=== PATIENT | male | born 1975 | race Caucasian/White ===

== ENCOUNTER 2016-09-10 11:57 | Emergency (ER) ==
--- NOTE | 2016-09-10 12:18 | PROVIDER DOCUMENTATION ---
HPI-General Adult <Flores Boyd - Last Filed: 09/10/16 12:18> - General Source: patient - History of Present Illness -Gen Adult Nature of Presenting Problems: 41 yo male presents to ER via EMS with c/o anxiety due to leaving him recently. 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 Location of Pain/Injury: reports: none Pain Radiation: reports: no radiation Quality of Pain: reports: none Severity: reports: moderate Onset/Duration: reports: just prior to arrival Timing: reports: still present Context/Activities at Onset: reports: recent emotional stress (d/t leaving him recently) Modifying Factors: improves with: nothing Associated Symptoms: reports: anxiety Similar Symptoms Previously?: Yes Recently seen or treated by another doctor?: No <[email or web address]. - Last Filed: 09/10/16 17:18> - General Chief Complaint: Anxiety Stated Complaint: PANIC ATTACK Time Seen by Provider: 09/10/16 13:00 Allergies/Adverse Reactions: Patient Allergies Allergy/AdvReac Type Severity Reaction Status Date / Time No Known Allergies Allergy Verified 09/10/16 12:11 Home Medications: Home Medication List Medication Instructions Recorded Confirmed Last Taken Type Clonazepam [Klonopin] 1 mg PO BID PRN PRN #14 tablet 09/10/16 Unknown Rx Review of Systems - Adult - REVIEW OF SYSTEMS - ADULT Constitutional: reports: no symptoms reported Eyes: reports: no symptoms reported Ears, Nose, Mouth & Throat: reports: no symptoms reported Cardiovascular: reports: see HPI, other (chest pressure) Respiratory: reports: no symptoms reported Gastrointestinal: reports: no symptoms reported Genitourinary: reports: no symptoms reported Musculoskeletal: reports: no symptoms reported Integumentary: reports: no symptoms reported Neurological: reports: no symptoms reported Psychiatric: reports: see HPI, anxiety Endocrine: reports: no symptoms reported Hematologic/Lymphatic: reports: no symptoms reported Allergic/Immunologic: reports: no symptoms reported All Other Systems: Reviewed and Negative <VickieSeptember. - Last Filed: 09/10/16 17:18> Past History - Adult - PAST MEDICAL HISTORY-ADULT Review of Records: reports: Old Records Reviewed, Nursing Assessment Review, Medications Reviewed, Social history reviewed & non-contributory. Major Childhood Illnesses: reports: denies history Cardiovascular: reports: denies history Respiratory: reports: denies history Gastrointestinal: reports: denies history Obstetrical/Gynecological: reports: denies history Genitourinary: reports: denies history Musculoskeletal: reports: denies history Neurological: reports: denies history Endocrine/Immune: reports: denies history Other Conditions: reports: denies history - IMMUNIZATION STATUS Childhood Immunizations: See Nurse Assessment Flu Vaccine: See Nurse Assessment - FAMILY HISTORY Family History: reviewed, not pertinent - SOCIAL HISTORY Smoking: denies, non-smoker Substance Use: marijuana Alcohol Use Frequency: every day Number of drinks per typical drinking period:: 3-4 drinks (beer) Living Situation: alone <Johnston. - Last Filed: 09/10/16 17:18> Physical Exam-General - PHYSICAL EXAM-ADULT Initial Vital Signs Reviewed: Yes - CONSTITUTIONAL General Appearance: alert, anxious - EYES Eyes: PERRL/EOMI, pink conjunctivae - HEAD, EARS, NOSE, MOUTH & THROAT HENMT: normocephalic/atraumatic - RESPIRATORY Respiratory: lungs clear, normal breath sounds, no respiratory distress - CARDIOVASCULAR Cardiovascular: normal peripheral pulses, regular rate, rhythm - MUSCULOSKELETAL Extremity: normal gait - SKIN Integumentary: normal color, normal turgor, warm/dry - NEUROLOGIC Neurologic: grossly normal - PSYCHIATRIC Psych/Mental Status: normal thought content, normal thought process, oriented x 3, anxious, tearful <Johnston. - Last Filed: 09/10/16 17:18> Progress - EKG 1 Time of EKG reading by physician:: 12:10 EKG Read and Signed by:: Sergio Glass EKG Interpretation (*Must complete 3 of following elements*): Normal Rate: 98 Rhythm: normal sinus rhythm [place]: normal QRS: normal NC Interval: normal ST Wave: normal <Flores Boyd - Last Filed: 09/10/16 12:18> - PLAN OF CARE/RESULTS Progress/Plan/Lab Results: 1410-Discussed patient case with Dr. Glass; ok to give klonopin 1mg BID prn anxiety. 1430-Discussed results/dx/tx/need to establish a primary care provider; patient verbalized understanding. Laboratory Tests 09/10/16 09/10/16 09/10/16 12:40 12:40 12:40 WBC 6.84 RBC 4.90 Hgb 15.7 Hct 45.6 MCV 93.1 MCH 32.0 H MCHC 34.4 RDW Std Deviation 12.3 Plt Count 272 MPV 9.5 Immature Gran % (Auto) 0.4 Neut % (Auto) 67.5 Lymph % (Auto) 23.7 Union % (Auto) 7.6 Eos % (Auto) 0.4 Baso % (Auto) 0.4 Immature Gran # (Auto) 0.03 Neut # (Auto) 4.61 Lymph # (Auto) 1.62 Union # (Auto) 0.52 Eos # (Auto) 0.03 Baso # (Auto) 0.03 Sodium 137 Potassium 4.2 Chloride 99 Carbon Dioxide 25 Anion Gap 14 BUN 9 Creatinine 0.8 Estimated GFR/1.73 m2 > 60 BUN/Creatinine Ratio 11 Glucose 110 H Calculated Osmolality 273 Calcium 9.8 Total Bilirubin 0.50 AST 39 H ALT 53 H Alkaline Phosphatase 44 Creatine Kinase Creatine Kinase Index CK-MB (CK-2) Troponin T < 0.010 Total Protein 7.9 Albumin 5.0 Globulin 3.0 Albumin/Globulin Ratio 2.0 09/10/16 12:40 WBC RBC Hgb Hct MCV MCH MCHC RDW Std Deviation Plt Count MPV Immature Gran % (Auto) Neut % (Auto) Lymph % (Auto) Union % (Auto) Eos % (Auto) Baso % (Auto) Immature Gran # (Auto) Neut # (Auto) Lymph # (Auto) Union # (Auto) Eos # (Auto) Baso # (Auto) Sodium Potassium Chloride Carbon Dioxide Anion Gap BUN Creatinine Estimated GFR/1.73 m2 BUN/Creatinine Ratio Glucose Calculated Osmolality Calcium Total Bilirubin AST ALT Alkaline Phosphatase Creatine Kinase 595 H Creatine Kinase Index 0.6 CK-MB (CK-2) 3.82 Troponin T Total Protein Albumin Globulin Albumin/Globulin Ratio Orders Category Date Time Status CHEST-2 VIEWS [RAD] Stat Exams 09/10/16 12:16 Draft CBC WITH DIFF [HEME] Stat Lab 09/10/16 12:40 Completed CK PROFILE [SP CHEM] Stat Lab 09/10/16 12:40 Completed COMPREHENSIVE METABOLIC PANEL [CHEM] Stat Lab 09/10/16 12:40 Completed TROPONIN T Stat Lab 09/10/16 12:40 Completed Lorazepam [Ativan] Med 03/18/17 13:29 Discontinued 1 mg PO NOW ONE EKG [EKG] Stat Ther 09/10/16 12:16 Draft Vital Signs - 24 hr 09/10/16 09/10/16 12:07 14:53 Temperature 97.9 F Pulse Rate 96 H 78 Respiratory 18 20 Rate Blood Pressure 186/92 155/99 O2 Sat by Pulse 100 99 Oximetry - REASSESSMENT Reassessment #1 Time Reassessed: 14:34 (anxiety improved) Status: improving - XRAY 1 XRAY Study: Chest Impression: Normal (no acute chest pathology) XRAY Interpretation: Interpreted by Dr. Vanegas <VickieSeptember. - Last Filed: 09/10/16 17:18> Departure <Flores Boyd - Last Filed: 09/10/16 12:18> - Departure Time of Disposition Order: 14:41 Certified Medical Emergency: Emergent <VickieSeptember. - Last Filed: 09/10/16 17:18> - Departure DIAGNOSIS: Anxiety, Stress Disposition: HOME 01 Condition: Fair Additional Instructions: Establish a primary care doctor. Take medications as prescribed. ED Follow Up Instructions: You have been treated by a care provider in the Emergency Department. These instructions are being provided to you so you can have an understanding of how to care for yourself upon discharge. Upon discharge from the Emergency Department, you are responsible for making arrangements for follow-up care by a physician of your choice. Take all prescribed medications as directed. Return to the Emergency Department immediately for any new or worsening symptoms. You may call the Physician Referral phone number at [phone] to obtain a list of Physicians who are taking new patients. Prescriptions: Clonazepam [Klonopin] 1 mg PO BID PRN PRN #14 tablet PRN Reason: Anxiety Referrals: Zenon Muller MD [STAFF PHYSICIAN] - Forms: Return to School/Parent Work Instructions: Clonazepam tablets, Stress and Stress Management Attestation - Scribe Verification/Attestation Scribe:: Flores Boyd Scribe documention review:: This chart was documented by a scribe and accurately reflects the service the provider performed and the decisions made by the provider. <Flores Boyd - Last Filed: 09/10/16 12:18> - Physician/ OJ Attestation Patient care was provided by Advanced Practice Provider:: Yes Advanced Practice Provider:: Bernice Johnston Advanced Practice Provider documentation review:: The Mid-level provider documentation, treatment plan and medical decision making was reviewed by the physician who agrees with all treatment and medical decision making by the MLP. <Bernice Johnston - Last Filed: 09/10/16 17:18> Physician Attestation - Physician Attestation I, the provider, attest to the following statement:: Bernice Johnston Physician documentation Attestation:: This documentation recorded by the scribe accurately reflects the service I personally performed and the decisions made by me. <Bernice Johnston - Last Filed: 09/10/16 17:18>
[2016-09-10 12:46] LABS: MANUAL DIFF NEEDED? NO
[2016-09-10 12:47] LABS: BASO% 0.4 % (0.0-0.8); EOS# 0.03 X1000 (0.0-0.7); EOS% 0.4 % (0.0-10.0); HEMATOCRIT 45.6 % (42.0-52.0); HEMOGLOBIN 15.7 g/dL (14.0-18.0); IMM GRAN# 0.03 X1000 (0.0-0.04); IMM GRAN% 0.4 % (0.0-0.5); LYMPH# 1.62 X1000 (1.2-3.4); LYMPH% 23.7 % (20.5-51.1); MCHC 34.4 g/dL (33-37); MCV 93.1 FL (81-99); MONO# 0.52 X1000 (0.11-0.59); MONO% 7.6 % (1.7-9.3); MPV 9.5 FL (7.4-10.4); NEUT% 67.5 % (42.2-75.2); PLT 272 X1000 (130-400)
--- NOTE | 2016-09-10 13:00 | Diag Imaging Result Document ---
PROCEDURE NAME: CHEST-2 VIEWS - 09/10/2016 PA AND LATERAL RADIOGRAPH OF THE CHEST: COMPARISON: None available. FINDINGS: The lungs are grossly clear. There is no discrete pleural fluid collection or evidence of pneumothorax. The cardiomediastinal silhouette and upper airway are grossly unremarkable. IMPRESSION: No evidence of acute chest pathology.
--- NOTE | 2016-09-10 13:02 | EKG Report ---
Test Performed on : 09/10/2016 12:10:06 PM Test Reason : ANXIETY Blood Pressure : / mmHG Vent. Rate : 098 BPM Atrial Rate : 098 BPM P-R Int : 152 ms QRS Dur : 092 ms QT Int : 348 ms P-R-T Axes : 048 063 027 degrees QTc Int : 444 ms Normal sinus rhythm. Normal ECG No previous ECGs available Unconfirmed Result
[2016-09-10 13:17] LABS: AGAP 14; ALKALINE PHOSPHATASE 44 U/L (32-122); BUN 9 mg/dL (8-22); CALCIUM 9.8 mg/dL (8.8-10.2); CHLORIDE 99 mmol/L (98-107); COSMO 273; GOT 39 U/L (10-34); GPT 53 U/L (10-44); POTASSIUM 4.2 mmol/L (3.5-5.1); SODIUM 137 mmol/L (136-145); TCO2 25 mmol/L (25-35); TOTAL PROTEIN 7.9 g/dL (6.3-8.3)
[2016-09-10] MEDS ORDERED: ATIVAN PO ONE (13:29)
[2016-09-10 14:02] LABS: CK INDEX 0.6 (0.0-2.5); CK-MB 3.82 ng/mL (0.0-5.0)
[2016-09-10 14:54] VITALS: BP 155/99
== END 2016-09-10 14:54 | disposition home or self-care (01) ==
LOC: P.ED 11:57
DX: F41.9 Anxiety disorder, unspecified (principal); F43.9 Reaction to severe stress, unspecified; R07.89 Other chest pain
CPT/HCPCS: 36415; 71020; 80053; 82550; 82553; 84484; 85025; 93005; 99283